=== PATIENT | female | born 1985 | race African-American/Black ===

== ENCOUNTER → 2017-01-11 | Outpatient (CLI) | payer BC ==
[~2017-01-11] MED LIST: ALDOMET 250MG250 MG PO; MULTI VITAMINS1 TAB PO; PRENATAL VITAMI1 TAB PO; PRILOSEC 20MG20 MG PO; ZOFRAN4 M1 PO
== END ==
LOC: COL.LAB 09:33
DX: E89.0 Postprocedural hypothyroidism (principal)

== ENCOUNTER 2017-08-22 18:55 | Emergency (ER) | payer BC ==
[~2017-08-22] VITALS: Ht 160 cm; Wt 68.2 kg
[2017-08-22 19:02] VITALS: TEMP 98.1
[2017-08-22] MEDS ORDERED: SYNTHROID0.1 MG/TAB PO (19:05)
[2017-08-22 21:04] LABS: BASO % 0.1 % (0.0-2.0); GRAN # 16.9 (1.4-6.5); GRAN % 89.3 % (42.2-75.2); HEMATOCRIT 44.1 % (37.0-47.0); HEMOGLOBIN 15.3 g/dl (12.5-16.0); LYMPH # 1.1 (1.2-3.4); LYMPH % 5.8 % (20.0-51.0); MEAN CELL VOLUME 92 fl (80.0-100.0); MEAN CORPUSCULAR HEMOGLOBIN 32 pg (27.0-31.0); MEAN CORPUSCULAR HGB CONC 35 g/dl (33.0-37.0); MEAN PLATELET VOLUME 11.1 fl (7.4-10.4); MONO # 0.8 (0.1-0.6); MONO % 4.1 % (1.7-9.3); PLATELET COUNT 245 K/mm3 (130-400); RED BLOOD COUNT 4.82 M/mm3 (4.10-5.30); REDCELL DISTRIBUTION WIDTH-CV 12.7 % (11.5-14.5); WHITE BLOOD COUNT 18.9 K/mm3 (4.8-10.8)
[2017-08-22 21:16] LABS: ADJUSTED CALCIUM 9.4 mg/dL (8.4-10.2); ALANINE AMINOTRANSFERASE 22 U/L (9-52); ALBUMIN 4.7 gm/dL (3.5-5.0); ALKALINE PHOSPHATASE 70 U/L (50-136); ANION GAP 16 mmol/L (7-16); BILIRUBIN,TOTAL 1.2 mg/dL (0.0-1.0); BLOOD UREA NITROGEN 10 mg/dL (7-17); C-REACTIVE PROTEIN < 0.5 mg/dL (0.0-0.9); CARBON DIOXIDE 16 mmol/L (22-30); CHLORIDE 110 mmol/L (98-107); CREATININE, serum 0.75 mg/dL (0.52-1.25); GLUCOSE 113 mg/dL (74-106); LIPASE 81 U/L (23-300); POTASSIUM 3.3 mmol/L (3.4-5.0); SODIUM 142 mmol/L (137-145); TOTAL PROTEIN 8.1 gm/dL (6.4-8.2)
[2017-08-22 22:29] LABS: PH 7 (5-8); SQUAMOUS EPITHELIAL 0-2 /hpf; URINE APPEARANCE Hazy; URINE BACTERIA Rare /hpf; URINE BILIRUBIN Negative (NEGATIVE); URINE BLOOD Negative (NEGATIVE); URINE COLOR Yellow; URINE GLUCOSE Negative (NEGATIVE); URINE KETONE 2+ (NEGATIVE); URINE UROBILINOGEN Negative (NEGATIVE); URINE WBC 0-2 /hpf
[2017-08-22] MEDS ORDERED: ZOFRAN 4MG T4 MG/TAB PO (22:49)
[2017-08-22] MEDS ORDERED: NORCO 325 MG-51 TAB PO (22:49)
[2017-08-22 23:29] VITALS: BP 112/66; PULSE 58
== END 2017-08-22 23:38 | disposition home or self-care (01) ==
LOC: COL.ER 18:55
PROVIDERS: Emergency Medicine
DX: R10.11 Right upper quadrant pain (principal); R11.10 Vomiting, unspecified; E03.9 Hypothyroidism, unspecified; Z87.442 Personal history of urinary calculi; Z90.710 Acquired absence of both cervix and uterus
CPT/HCPCS: J2270; J2405; J7030; Q9967